=== PATIENT | female | born 1980 | race Caucasian/White ===

== ENCOUNTER 2018-10-12 09:49 | Emergency (ER) | payer BC ==
[2018-10-12] MEDS ORDERED: Aspirin 81 MG Tab.Chew PO ONE (10:32)
[2018-10-12] MEDS ORDERED: Nitroglycerin 0.4 MG Tab.SL SL PRN (10:32)
--- NOTE | 2018-10-12 10:32 | EDM.PDOC ---
ED HPI GENERAL MEDICAL PROBLEM - General Chief Complaint: Chest Pain Stated Complaint: chest pain Time Seen by Provider: 10/12/18 10:00 Source of Information: Reports: Patient, Old Records, RN, RN Notes Reviewed History Limitations: Reports: No Limitations - History of Present Illness INITIAL COMMENTS - FREE TEXT/NARRATIVE: Pt presents to ER from home by POV with c/o midline chest pain from the epigastric region to the sternal notch that radiates to the mid-back. Pt reports the pain comes and goes. The pain began yesterday at 1530HRS while pt was at rest. She denies shortness of breath, nausea, palpitations, rapid HR, syncope, near syncope, edema, leg/calf pain or swelling, or acid reflux. She admits to tingling in the arms, left>Rt. She rates the pain 8/10. Nothing alleviates or aggravates the pain. Onset: Sudden Onset Date: 10/11/18 Duration: Intermittent, Waxing/Waning Location: Reports: Chest Quality: Reports: Sharp Improves with: Reports: None Worsens with: Reports: None Associated Symptoms: Reports: No Other Symptoms Chest Pain Score (Numeric/FACES): 9 - Related Data Allergies Allergy/AdvReac Type Severity Reaction Status Date / Time No Known Allergies Allergy Verified 10/12/18 09:57 Home Meds: Home Meds hydroCHLOROthiazide [Hydrochlorothiazide] 25 mg PO DAILY 10/12/18 [History] Past Medical History HEENT History: Reports: None Cardiovascular History: Reports: Hypertension Respiratory History: Reports: None Gastrointestinal History: Reports: None Genitourinary History: Reports: None EVS MANAGER History: Reports: None Musculoskeletal History: Reports: None Neurological History: Reports: None Psychiatric History: Reports: None Endocrine/Metabolic History: Reports: None Hematologic History: Reports: None Immunologic History: Reports: None Oncologic (Cancer) History: Reports: None Dermatologic History: Reports: None - Infectious Disease History Infectious Disease History: Reports: None - Past Surgical History Head Surgeries/Procedures: Reports: None Social & Family History - Family History Family Medical History: Noncontributory - Tobacco Use Smoking Status *Q: Current Every Day Smoker Years of Tobacco use: 6 Packs/Tins Daily: 1 - Caffeine Use Caffeine Use: Reports: None - Recreational Drug Use Recreational Drug Use: No - Living Situation & Occupation Living situation: Reports: with Family Occupation: Employed ED ROS GENERAL - Review of Systems Review Of Systems: ROS reveals no pertinent complaints other than HPI. ED EXAM, GENERAL - Physical Exam Exam: See Below Exam Limited By: No Limitations General Appearance: Alert, WD/WN, No Apparent Distress, Anxious, Obese Eye Exam: Bilateral Eye: Normal Inspection Nose: Normal Inspection Throat/Mouth: Normal Inspection, Normal Lips, Normal Teeth, Normal Gums, Normal Oropharynx, Normal Voice, No Airway Compromise Head: Atraumatic, Normocephalic Neck: Normal Inspection, Supple, Non-Tender, Full Range of Motion Respiratory/Chest: No Respiratory Distress, Lungs Clear, Normal Breath Sounds, No Accessory Muscle Use, Chest Non-Tender Cardiovascular: Normal Peripheral Pulses, Regular Rate, Rhythm, No Edema, No Gallop, No JVD, No Murmur, No Rub GI/Abdominal: Normal Bowel Sounds, Soft, Non-Tender, No Organomegaly, No Distention, No Abnormal Bruit, No Mass Back Exam: Normal Inspection, Full Range of Motion, NT Extremities: Normal Inspection, Normal Range of Motion, Non-Tender, No Pedal Edema, Normal Capillary Refill. No: Jasmin's Sign Neurological: Alert, Oriented, CN II-XII Intact, Normal Cognition, Normal Gait, No Motor/Sensory Deficits Psychiatric: Anxious Skin Exam: Warm, Dry, Intact, Normal Color, No Rash EKG INTERPRETATION EKG Date: 10/12/18 Time: 09:58 Rhythm: NSR [place]: Normal P-Wave: Present QRS: Normal ST-T: Normal QT: Normal Comparison: NA - No Prior EKG Course - Vital Signs Last Recorded V/S: Last Vital Signs Temp 36.8 C 10/12/18 09:57 Pulse 76 10/12/18 09:57 Resp 12 10/12/18 09:57 BP 164/105 H 10/12/18 10:42 Pulse Ox 100 10/12/18 09:57 - Orders/Labs/Meds Orders: Active Orders 24 hr Category Date Time Status EKG Documentation Completion [RC] URGENT Care 10/12/18 10:01 Active Chest 1V Frontal [CR] Stat Exams 10/12/18 10:47 Ordered PTT,PARTIAL THROMBOPLSTIN TIME [COAG] Stat Lab 10/12/18 10:53 Ordered UA W/O MICROSCOPIC [URIN] Stat Lab 10/12/18 10:53 Ordered Heparin Sodium/0.45% NaCl [Heparin 25,000 Units in 1/2 Med 10/12/18 11:00 Ordered NS 500 ML] 25,000 units in 500 ml IV TITRATE Nitroglycerin [Nitrostat] Med 10/12/18 10:32 Active 0.4 mg SL Q5M PRN Nitroglycerin/D5W [Nitroglycerin 25 MG/D5W 250 ML] Med 10/12/18 11:00 Ordered 25 mg in 250 ml IV TITRATE Medication Orders Heparin Sodium/Sodium Chloride (Heparin 25,000 Units In 1/2 Ns 500 Ml) 25,000 units in 500 mls @ 20.466 mls/hr IV TITRATE MINGO; Protocol Nitroglycerin/Dextrose (Nitroglycerin 25 Mg/D5w 250 Ml) 25 mg in 250 mls @ 3 mls/hr IV TITRATE MINGO; Protocol Nitroglycerin (Nitrostat) 0.4 mg SL Q5M PRN PRN Reason: Chest Pain Last Admin: 10/12/18 10:42 Dose: 0.4 mg Labs: Laboratory Tests 10/12/18 10/12/18 10/12/18 Range/Units 10:22 10:22 10:22 WBC 14.5 H (5.0-10.0) 10^3/uL RBC 5.36 (4.2-5.4) 10^6/uL Hgb 11.8 L (12.0-16.0) g/dL Hct 37.5 (37.0-47.0) % MCV 70.0 L (80-100) fL MCH 22.0 L (27.0-34.0) pg MCHC 31.5 L (33.0-35.0) g/dL Plt Count 306 (150-450) 10^3/uL Neut % (Auto) 74.8 (42.2-75.2) % Lymph % (Auto) 18.2 L (20.5-50.1) % [place] % (Auto) 5.6 (2-8) % Eos % (Auto) 1.1 (1.0-3.0) % Baso % (Auto) 0.3 (0.0-1.0) % D-Dimer, Quantitative 104 (0-400) ng/mL Sodium 134 L (135-145) mmol/L Potassium 3.1 L (3.6-5.0) mmol/L Chloride 100 L (101-111) mmol/L Carbon Dioxide 20.0 L (21.0-31.0) mmol/L Anion Gap 17.1 BUN 7 (7-18) mg/dL Creatinine 0.7 (0.6-1.3) mg/dL Est Cr Clr Drug Dosing 92.25 mL/min Estimated GFR (MDRD) > 60 BUN/Creatinine Ratio 10.00 Glucose 115 H (74-105) mg/dL Calcium 8.5 (8.4-10.2) mg/dl Total Bilirubin 0.5 (0.2-1.0) mg/dL AST 44 H (10-42) IU/L ALT 29 (10-60) IU/L Alkaline Phosphatase 82 (42-121) IU/L Troponin I 1.10 H* (0.00-0.02) ng/ml Total Protein 7.9 (6.7-8.2) g/dl Albumin 3.8 (3.2-5.5) g/dl Globulin 4.1 Albumin/Globulin Ratio 0.93 Amylase (28-100) U/L Lipase (22-51) U/L // Range/Units 10:22 WBC (5.0-10.0) 10^3/uL RBC (4.2-5.4) 10^6/uL Hgb (12.0-16.0) g/dL Hct (37.0-47.0) % MCV (80-100) fL MCH (27.0-34.0) pg MCHC (33.0-35.0) g/dL Plt Count (150-450) 10^3/uL Neut % (Auto) (42.2-75.2) % Lymph % (Auto) (20.5-50.1) % [place] % (Auto) (2-8) % Eos % (Auto) (1.0-3.0) % Baso % (Auto) (0.0-1.0) % D-Dimer, Quantitative (0-400) ng/mL Sodium (135-145) mmol/L Potassium (3.6-5.0) mmol/L Chloride (101-111) mmol/L Carbon Dioxide (21.0-31.0) mmol/L Anion Gap BUN (7-18) mg/dL Creatinine (0.6-1.3) mg/dL Est Cr Clr Drug Dosing mL/min Estimated GFR (MDRD) BUN/Creatinine Ratio Glucose (74-105) mg/dL Calcium (8.4-10.2) mg/dl Total Bilirubin (0.2-1.0) mg/dL AST (10-42) IU/L ALT (10-60) IU/L Alkaline Phosphatase (42-121) IU/L Troponin I (0.00-0.02) ng/ml Total Protein (6.7-8.2) g/dl Albumin (3.2-5.5) g/dl Globulin Albumin/Globulin Ratio Amylase 66 (28-100) U/L Lipase 46 (22-51) U/L Meds: Medications Generic Name Dose Route Start Last Admin Trade Name Freq PRN Reason Stop Dose Admin Heparin Sodium/Sodium Chloride 25,000 units in 500 mls @ 20.466 mls/hr 11:00 Heparin 25,000 Units In 1/2 Ns 500 Ml IV TITRATE MINGO Protocol 12 UNITS/KG/HR Nitroglycerin/Dextrose 25 mg in 250 mls @ 3 mls/hr 10/12/18 11:00 Nitroglycerin 25 Mg/D5w 250 Ml IV TITRATE MINGO Protocol 5 MCG/MIN Nitroglycerin 0.4 mg 10/12/18 10:32 10/12/18 10:42 Nitrostat SL 0.4 mg Q5M PRN Administration Chest Pain Discontinued Medications Generic Name Dose Route Start Last Admin Trade Name Freq PRN Reason Stop Dose Admin Aspirin 324 mg 10/12/18 10:32 10/12/18 10:42 Aspirin PO 10/12/18 10:33 324 mg ONETIME ONE Administration Heparin Sodium (Porcine) 4,000 units 10/12/18 10:53 10/12/18 11:00 Heparin Sodium IVPUSH 10/12/18 10:54 4,000 units .BOLUS ONE Administration - Radiology Interpretation Free Text/Narrative:: XR Chest: no acute process, see Rad. report. Departure - Departure Time of Disposition: 11:06 Disposition: DC/Tfer to Acute Hospital 02 Reason for Transfer *Q: Primary PCI Indicated Condition: Critical Clinical Impression: Non-ST elevated myocardial infarction (non-STEMI) Forms: ED Department Discharge, Interfacility Transfer EMTALA - My Orders Last 24 Hours: My Active Orders 10/12/18 10:01 EKG Documentation Completion [RC] URGENT 10/12/18 10:32 Nitroglycerin [Nitrostat] 0.4 mg SL Q5M PRN 10/12/18 10:47 Chest 1V Frontal [CR] Stat 10/12/18 10:53 PTT,PARTIAL THROMBOPLSTIN TIME [COAG] Stat UA W/O MICROSCOPIC [URIN] Stat 10/12/18 11:00 Heparin Sodium/0.45% NaCl [Heparin 25,000 Units in 1/2 NS 500 ML] 25,000 units in 500 ml IV TITRATE Nitroglycerin/D5W [Nitroglycerin 25 MG/D5W 250 ML] 25 mg in 250 ml IV TITRATE - Assessment/Plan Last 24 Hours: My Active Orders 10/12/18 10:01 EKG Documentation Completion [RC] URGENT 10/12/18 10:32 Nitroglycerin [Nitrostat] 0.4 mg SL Q5M PRN 10/12/18 10:47 Chest 1V Frontal [CR] Stat 10/12/18 10:53 PTT,PARTIAL THROMBOPLSTIN TIME [COAG] Stat UA W/O MICROSCOPIC [URIN] Stat 10/12/18 11:00 Heparin Sodium/0.45% NaCl [Heparin 25,000 Units in 1/2 NS 500 ML] 25,000 units in 500 ml IV TITRATE Nitroglycerin/D5W [Nitroglycerin 25 MG/D5W 250 ML] 25 mg in 250 ml IV TITRATE
[2018-10-12 10:50] LABS: ANION GAP 17.1; CHLORIDE,CL 100 mmol/L (101-111); SODIUM,NA 134 mmol/L (135-145)
[2018-10-12] MEDS ORDERED: Heparin Sodium 5,000 Units/ML Vial IVPUSH ONE (10:53)
[2018-10-12] MEDS ORDERED: Nitroglycerin/D5W 25 MG/250 ML BOTTLE IV SCH (11:00)
[2018-10-12] MEDS ORDERED: Heparin Sodium/0.45% NaCl 25,000 UNITS/500 ML BAG IV SCH (11:00)
--- NOTE | 2018-10-12 11:13 | CR ---
Clinical history: 38-year-old female chest pain. Interpretation: Negative exam. External court recording monitor leads. Normal cardiac silhouette and left-sided aortic arch and stomach bubble. No alveolar edema or dependent effusion. No lung mass, hilar lymphadenopathy or focal lobar pneumonia. No pneumothorax or free subdiaphragmatic air.
== END 2018-10-12 11:23 ==
LOC: DL.ED 09:49
DX: I21.4 Non-ST elevation (NSTEMI) myocardial infarction (principal); I10 Essential (primary) hypertension; F17.210 Nicotine dependence, cigarettes, uncomplicated
CPT/HCPCS: 36415; 71045; 80053; 81003; 82150; 83690; 84484; 85025; 85379; 85730; 93005; 96365; 96368; 96376; 99285; A9270; J1644; J3490

== ENCOUNTER 2021-03-31 16:01 | Emergency (ER) | payer BC ==
--- NOTE | 2021-03-31 17:06 | EDM.PDOC ---
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 Passing clots changing pad every 20 minutes. Reports ablation scheduled for May.Hx uterine fibroids. Dizziness with posiiton changes. Had E- care visit today and told to go to ED and have labs checked. Prior Hgb in February was 11.0 Onset: Unknown/Unsure Abdomen Pain Score (Numeric/FACES): 4 - Related Data Allergies Allergy/AdvReac Type Severity Reaction Status Date / Time No Known Allergies Allergy Verified 03/31/21 17:01 Home Meds: Home Meds hydroCHLOROthiazide [Hydrochlorothiazide] 25 mg PO DAILY 10/12/18 [History] Aspirin 81 mg PO DAILY 10/20/18 [History] Clopidogrel [Plavix] 75 mg PO DAILY 10/20/18 [History] Metoprolol Tartrate 25 mg PO BID 10/20/18 [History] Multivitamin [Multivitamins] 1 tab PO DAILY 10/20/18 [History] Nitroglycerin 0.4 mg PO ASDIRECTED PRN 10/20/18 [History] atorvaSTATin [Lipitor] 40 mg PO BEDTIME 10/20/18 [History] Norethindrone [Norlyda] 0.35 mg PO DAILY 01/16/21 [History] Cholecalciferol (Vitamin D3) [Vitamin D] 1 tab PO DAILY 02/22/21 [History] Past Medical History HEENT History: Reports: None Cardiovascular History: Reports: Hypertension, [place] Other Cardiovascular History: NStemi 10/12/2018 Respiratory History: Reports: None, Other (See Below) Other Respiratory History: Covid 19 02/21/21 Gastrointestinal History: Reports: None Genitourinary History: Reports: None SMOKE TESTER History: Reports: Musculoskeletal History: Reports: None Neurological History: Reports: None Psychiatric History: Reports: None Endocrine/Metabolic History: Reports: None Hematologic History: Reports: Anemia Other Hematologic History: Hgb 11.9 Immunologic History: Reports: None Oncologic (Cancer) History: Reports: None Dermatologic History: Reports: None - Infectious Disease History Infectious Disease History: Reports: Novel Coronavirus - Past Surgical History Head Surgeries/Procedures: Reports: None HEENT Surgical History: Reports: None Cardiovascular Surgical History: Reports: Coronary Artery Stent Other Cardiovascular Surgeries/Procedures: Stent to mid LAD and Distal RCA 10/12/2018 Respiratory Surgical History: Reports: None Female Surgical History: Reports: Section Endocrine Surgical History: Reports: None Neurological Surgical History: Reports: None Musculoskeletal Surgical History: Reports: None Oncologic Surgical History: Reports: None Dermatological Surgical History: Reports: None Social & Family History - Family History Family Medical History: No Pertinent Family History - Caffeine Use Caffeine Use: Reports: None - Living Situation & Occupation Living situation: Reports: with Family Occupation: Employed ED ROS GENERAL - Review of Systems Review Of Systems: Comprehensive ROS is negative, except as noted in HPI. ED EXAM, RENAL/ - Physical Exam Exam: See Below Exam Limited By: No Limitations General Appearance: Alert, No Apparent Distress Eye Exam: Bilateral Eye: EOMI Ears: Normal External Exam, Hearing Grossly Normal Nose: Normal Inspection Throat/Mouth: Normal Inspection Head: Atraumatic, Normocephalic Neck: Full Range of Motion Respiratory/Chest: No Respiratory Distress, Normal Breath Sounds Cardiovascular: Regular Rate, Rhythm (Female) Exam: Other (declined, recent trans vaginal US done in [facility] last week) Extremities: Normal Range of Motion Neurological: Alert, Oriented Psychiatric: Normal Affect, Normal Mood Skin Exam: Warm, Dry, Intact Course - Vital Signs Last Recorded V/S: Last Vital Signs Temp 98.7 F 03/31/21 17:01 Pulse 87 03/31/21 17:01 Resp 16 03/31/21 17:01 BP 130/90 03/31/21 17:01 Pulse Ox 100 03/31/21 17:01 - Orders/Labs/Meds Labs: Laboratory Tests 03/31/21 03/31/21 03/31/21 Range/Units 07:55 07:55 07:55 WBC 12.6 H (5.0-10.0) 10^3/uL RBC 4.31 (4.2-5.4) 10^6/uL Hgb 9.2 L D (12.0-16.0) g/dL Hct 30.5 L (37.0-47.0) % MCV 70.8 L (80-100) fL MCH 21.3 L (27.0-34.0) pg MCHC 30.2 L (33.0-35.0) g/dL Plt Count 352 (150-450) 10^3/uL Neut % (Auto) 73.1 (42.2-75.2) % Lymph % (Auto) 18.5 L (20.5-50.1) % [place] % (Auto) 6.6 (2-8) % Eos % (Auto) 1.4 (1.0-3.0) % Baso % (Auto) 0.4 (0.0-1.0) % PT 9.9 (9.0-12.0) SEC INR 1.0 (0.9-1.2) Sodium 137 (136-145) mmol/L Potassium 3.1 L (3.5-5.1) mmol/L Chloride 101 (98-107) mmol/L Carbon Dioxide 27 (21-32) mmol/L Anion Gap 12.1 (7-13) mEq/L BUN 8 (7-18) mg/dL Creatinine 0.80 (0.55-1.02) mg/dL Est Cr Clr Drug Dosing 79.11 mL/min Estimated GFR (MDRD) > 60 BUN/Creatinine Ratio 10.0 (No establ ref range) Glucose 96 (70-99) mg/dL Calcium 9.0 (8.5-10.1) mg/dL Total Bilirubin 0.2 (0.2-1.0) mg/dL AST 10 L (15-37) U/L ALT 19 (14-59) U/L Alkaline Phosphatase 134 H (46-116) U/L Total Protein 7.7 (6.4-8.2) g/dL Albumin 3.3 L (3.4-5.0) g/dL Globulin 4.4 Albumin/Globulin Ratio 0.75 HCG, Qual Negative Departure - Departure Time of Disposition: 18:28 Disposition: Home, Self-Care 01 Condition: Good Clinical Impression: Vaginal bleeding Uterine fibroid Qualifiers: Uterine leiomyoma location: unspecified location Qualified Code(s): D25.9 - Leiomyoma of uterus, unspecified Anemia Qualifiers: Anemia type: iron deficiency Iron deficiency anemia type: chronic blood loss Qualified Code(s): D50.0 - Iron deficiency anemia secondary to blood loss (chronic) - Discharge Information *PRESCRIPTION DRUG MONITORING PROGRAM REVIEWED*: No *COPY OF PRESCRIPTION DRUG MONITORING REPORT IN PATIENT JARON: No Instructions: Uterine Fibroids, [id number] Forms: ED Department Discharge Additional Instructions: increase fluids change position slowly follow up in clinic Friday Recheck sooner, increased bleeding, dizzy, severe cramping Sepsis Event Note (ED) - Focused Exam Vital Signs: Vital Signs Temp Pulse Resp BP Pulse Ox 03/31/21 17:01 98.7 F 87 16 130/90 100
[2021-03-31 18:20] LABS: ANION GAP 12.1 mEq/L (7-13); CHLORIDE,CL 101 mmol/L (98-107); SODIUM,NA 137 mmol/L (136-145)
== END 2021-03-31 18:49 | disposition home or self-care (01) ==
LOC: DL.ED 16:01
DX: D25.9 Leiomyoma of uterus, unspecified (principal); N93.9 Abnormal uterine and vaginal bleeding, unspecified; D50.0 Iron deficiency anemia secondary to blood loss (chronic); I10 Essential (primary) hypertension; I25.2 Old myocardial infarction; Z95.5 Presence of coronary angioplasty implant and graft; Z86.16 Personal history of COVID-19; Z79.82 Long term (current) use of aspirin; Z79.02 Long term (current) use of antithrombotics/antiplatelets
CPT/HCPCS: 36415; 80053; 84703; 85025; 85610; 99284

== ENCOUNTER 2021-04-10 16:56 | Emergency (ER) | payer BC ==
--- NOTE | 2021-04-10 18:44 | EDM.PDOC ---
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 She states she has had her period for 2 months straight. Pt claims she is scheduled for a uterine ablation in [address]. Dr. 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 Pt was seen in ER yesterday and provider called her this afternoon and was told to come in for redraw and possible blood transfusion. Pt admits to dizziness/lightheadedness. She is now scheduled to see Dr. Mcdermott tomorrow. 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) Severity: Severe Improves with: Reports: None Worsens with: Reports: None Associated Symptoms: Reports: No Other Symptoms - Related Data Allergies Allergy/AdvReac Type Severity Reaction Status Date / Time No Known Allergies Allergy Verified 04/10/21 17:18 Home Meds: Home Meds hydroCHLOROthiazide [Hydrochlorothiazide] 25 mg PO DAILY 10/12/18 [History] Aspirin 81 mg PO DAILY 10/20/18 [History] Clopidogrel [Plavix] 75 mg PO DAILY 10/20/18 [History] Metoprolol Tartrate 25 mg PO BID 10/20/18 [History] Multivitamin [Multivitamins] 1 tab PO DAILY 10/20/18 [History] Nitroglycerin 0.4 mg PO ASDIRECTED PRN 10/20/18 [History] atorvaSTATin [Lipitor] 40 mg PO BEDTIME 10/20/18 [History] Norethindrone [Norlyda] 0.35 mg PO DAILY 01/16/21 [History] Cholecalciferol (Vitamin D3) [Vitamin D] 1 tab PO DAILY 02/22/21 [History] Past Medical History HEENT History: Reports: None Cardiovascular History: Reports: Hypertension, [place] Other Cardiovascular History: NStemi 10/12/2018 Respiratory History: Reports: None, Other (See Below) Other Respiratory History: Covid 19 02/21/21 Gastrointestinal History: Reports: None Genitourinary History: Reports: None COVERING AND LINING SUPERVISOR History: Reports: Dysfunctional Uterine Bleeding, Musculoskeletal History: Reports: None Neurological History: Reports: None Psychiatric History: Reports: None Endocrine/Metabolic History: Reports: None Hematologic History: Reports: Anemia Other Hematologic History: Hgb 11.9 Immunologic History: Reports: None Oncologic (Cancer) History: Reports: None Dermatologic History: Reports: None - Infectious Disease History Infectious Disease History: Reports: Novel Coronavirus - Past Surgical History Head Surgeries/Procedures: Reports: None HEENT Surgical History: Reports: None Cardiovascular Surgical History: Reports: Coronary Artery Stent Other Cardiovascular Surgeries/Procedures: Stent to mid LAD and Distal RCA 10/12/2018 Respiratory Surgical History: Reports: None Female Surgical History: Reports: Section Endocrine Surgical History: Reports: None Neurological Surgical History: Reports: None Musculoskeletal Surgical History: Reports: None Oncologic Surgical History: Reports: None Dermatological Surgical History: Reports: None Social & Family History - Family History Family Medical History: No Pertinent Family History - Tobacco Use Tobacco Use Status *Q: Never Tobacco User Second Hand Smoke Exposure: No - Caffeine Use Caffeine Use: Reports: Soda - Recreational Drug Use Recreational Drug Use: No - Living Situation & Occupation Living situation: Reports: with Family Occupation: Employed ED ROS GENERAL - Review of Systems Review Of Systems: Comprehensive ROS is negative, except as noted in HPI. ED EXAM, GENERAL - Physical Exam Exam: See Below Exam Limited By: No Limitations General Appearance: Alert, WD/WN, No Apparent Distress Eye Exam: Bilateral Eye: Normal Inspection Nose: Normal Inspection, No Blood Throat/Mouth: Normal Inspection, Normal Voice, No Airway Compromise Head: Atraumatic, Normocephalic Respiratory/Chest: No Respiratory Distress, Lungs Clear Cardiovascular: Regular Rate, Rhythm, No Edema GI/Abdominal: Normal Bowel Sounds, Soft, Non-Tender (Female) Exam: Deferred Rectal (Female) Exam: Deferred Extremities: No Pedal Edema Neurological: Alert, Oriented, CN II-XII Intact, Normal Cognition, Normal Gait, No Motor/Sensory Deficits Psychiatric: Normal Affect, Normal Mood Skin Exam: Warm, Dry, Intact, Normal Color, No Rash Course - Re-Assessments/Exams Free Text/Narrative Re-Assessment/Exam: 04/10/21 19:00 Care of pt transferred to Teena REAGAN at shift change. Departure - Departure Disposition: Home, Self-Care 01 Clinical Impression: Anemia Qualifiers: Anemia type: iron deficiency Iron deficiency anemia type: chronic blood loss Qualified Code(s): D50.0 - Iron deficiency anemia secondary to blood loss (chronic) Menorrhagia Qualifiers: Menorrhagia type: with regular cycle Qualified Code(s): N92.0 - Excessive and frequent menstruation with regular cycle - Discharge Information Instructions: Menorrhagia, [id number] Forms: ED Department Discharge Additional Instructions: Follow up with Dr Mcdermott tomorrow as scheduled change positions slowly Follow up if shortness of breath chest pain severe dissiness, increased bleeding Sepsis Event Note (ED) - Evaluation Sepsis Screening Result: No Definite Risk <Teena Wong - Last Filed: 04/11/21 05:18> Course - Vital Signs Last Recorded V/S: Last Vital Signs Temp 97.2 F 04/10/21 17:22 Pulse 96 04/10/21 17:22 Resp 16 04/10/21 17:22 BP 148/79 H 04/10/21 17:22 Pulse Ox 97 04/10/21 17:22 Orthostatic Blood Pressure [ 128/88 Standing] Orthostatic Blood Pressure [ 133/82 Sitting] Orthostatic Blood Pressure [ 131/89 Supine] - Orders/Labs/Meds Labs: Laboratory Tests 04/10/21 04/10/21 Range/Units 18:49 18:57 WBC 11.7 H (5.0-10.0) 10^3/uL RBC 3.88 L (4.2-5.4) 10^6/uL Hgb 8.1 L (12.0-16.0) g/dL Hct 27.3 L (37.0-47.0) % MCV 70.4 L (80-100) fL MCH 20.9 L (27.0-34.0) pg MCHC 29.7 L (33.0-35.0) g/dL Plt Count 420 (150-450) 10^3/uL Neut % (Auto) 60.9 (42.2-75.2) % Lymph % (Auto) 29.5 (20.5-50.1) % [place] % (Auto) 6.3 (2-8) % Eos % (Auto) 2.8 (1.0-3.0) % Baso % (Auto) 0.5 (0.0-1.0) % Urine Color [place] (YELLOW) Urine Appearance Slightly cloudy (CLEAR) Urine pH 7.0 (5.0-9.0) Ur Specific [place] 1.015 (1.005-1.030) Urine Protein Negative (NEGATIVE) Urine Glucose (UA) Negative (NEGATIVE) Urine Ketones Negative (NEGATIVE) Urine Occult Blood Large H (NEGATIVE) Urine Nitrite Negative (NEGATIVE) Urine Bilirubin Negative (NEGATIVE) Urine Urobilinogen 0.2 (0.2-1.0) mg/dL Ur Leukocyte Esterase Negative (NEGATIVE) Urine RBC 40-50 H (0-5) /HPF Urine WBC 0-5 (0-5/HPF) /HPF Ur Epithelial Cells Moderate H (NOT SEEN) /HPF Urine Bacteria Rare (0-FEW/HPF) /HPF Departure - Departure Time of Disposition: 19:30 Condition: Fair - Discharge Information *PRESCRIPTION DRUG MONITORING PROGRAM REVIEWED*: No *COPY OF PRESCRIPTION DRUG MONITORING REPORT IN PATIENT JARON: No Sepsis Event Note (ED) - Focused Exam Vital Signs: Vital Signs Temp Pulse Resp BP Pulse Ox 04/10/21 17:22 97.2 F 96 16 148/79 H 97
== END 2021-04-10 19:35 | disposition home or self-care (01) ==
LOC: DL.ED 16:56
DX: D50.0 Iron deficiency anemia secondary to blood loss (chronic) (principal); N92.0 Excessive and frequent menstruation with regular cycle; I25.2 Old myocardial infarction; I10 Essential (primary) hypertension; Z86.16 Personal history of COVID-19; Z79.82 Long term (current) use of aspirin; Z79.899 Other long term (current) drug therapy
CPT/HCPCS: 36415; 81001; 85025; 99284

== ENCOUNTER 2023-07-07 10:28 | Emergency (ER) | payer SELFPAY ==
[2023-07-07 11:04] LABS: BASOPHILS PERCENT AUTO 0.6 % (0.0-1.0); EOSINOPHILS PERCENT AUTO 2.6 % (1.0-3.0); HEMATOCRIT 45.1 % (37.0-47.0); HEMOGLOBIN 15.2 g/dL (12.0-16.0); MEAN CORPUSCULAR HEMOGLOBIN 28.8 pg (27.0-34.0); MEAN CORPUSCULAR HGB CONC 33.7 g/dL (33.0-35.0); MEAN CORPUSCULAR VOLUME 85.6 fL (80-100); MONOCYTES PERCENT AUTO 5.7 % (2-8); NEUTROPHILS PERCENT AUTO 67.1 % (42.2-75.2); PLATELET COUNT,PLT 272 10^3/uL (150-450); RED BLOOD CELL COUNT 5.27 10^6/uL (4.2-5.4); WHITE BLOOD CELL COUNT,WBC 11.2 10^3/uL (5.0-10.0)
[2023-07-07 11:08] LABS: ALANINE AMINOTRANSFERASE,ALT 34 U/L (14-59); ALKALINE PHOSPHATASE 107 U/L (46-116); ANION GAP 16.4 mEq/L (7-13); ASPARTATE AMNIOTRANSFERASE,AST 18 U/L (15-37); BILIRUBIN TOTAL 0.3 mg/dL (0.2-1.0); BLOOD UREA NITROGEN,BUN 10 mg/dL (7-18); CALCIUM 9.2 mg/dL (8.5-10.1); CARBON DIOXIDE,CO2 25 mmol/L (21-32); CHLORIDE,CL 100 mmol/L (98-107); GLUCOSE RANDOM 98 mg/dL (70-99); LIPASE 69 U/L (16-77); POTASSIUM,K 3.4 mmol/L (3.5-5.1); PROTEIN TOTAL,TP 8.2 g/dL (6.4-8.2); SODIUM,NA 138 mmol/L (136-145)
[2023-07-07 11:22] LABS: BUN/CREATININE RATIO 11.9 (No establ ref range); CREATININE 0.84 mg/dL (0.55-1.02)
[2023-07-07 11:24] LABS: ESTIMATED GFR 88 mL/min (>=60)
[2023-07-07 11:34] LABS: B-TYPE NATRIURETIC PEPTIDE,BNP 8 pg/ml (0-100)
[2023-07-07] MEDS: Iopamidol 755 Mg/ML 100 ML Bottle IVPUSH ONE (13:03)
== END 2023-07-07 15:15 | disposition home or self-care (01) ==
LOC: DL.ED 10:28
DX: R07.89 Other chest pain (principal); I10 Essential (primary) hypertension; I25.2 Old myocardial infarction; Z79.82 Long term (current) use of aspirin; Z86.16 Personal history of COVID-19; Z79.899 Other long term (current) drug therapy
CPT/HCPCS: 36415; 71275; 80053; 83690; 83880; 84484; 85025; 93005; 99285; Q9967